=== PATIENT | male | born 1935 | race Caucasian/White ===

== ENCOUNTER → 2018-08-14 | Outpatient (CLI) | payer MEDICARE ==
[~2018-08-14] MED LIST: ASPIRIN EC81 MG PO; CELEBREX100 MG PO; FEXOFENADINE H180 MG PO; LIPITOR10 MG PO; TOPIRAMATE25 MG PO; TREXIMET 85-501 EACH PO; VITAMIN PO
--- NOTE | 2018-08-14 10:33 | Diagnostic Imaging Report ---
PROCEDURE:L-SPINE COMPLETE COMPARISON:None. INDICATIONS:sciatic nerve pain FINDINGS: There are 5 [id number] lumbar-type vertebral bodies. No acute, displaced fracture or subluxation. No pars interarticularis defects are identified on the oblique radiographs. There is multilevel disc space narrowing, marginal osteophytosis, and endplate sclerosis. Wedging of the T12 vertebral body may be physiologic or reflective of a remote minor compression injury. Atherosclerotic vascular calcifications. Sacroiliac joints are comparatively well maintained. CONCLUSION: No acute osseous abnormalities. Multilevel degenerative disc changes and degenerative facet arthropathy. MRI of the lumbar spine without contrast should be considered for further evaluation in the setting of radiculopathy. Dictated by: Kimo Penny M.D. on 08/14/2018 at 10:43 Electronically approved by: Kimo Penny M.D. on 08/14/2018 at 10:43
--- NOTE | 2018-08-14 10:35 | Diagnostic Imaging Report ---
PROCEDURE:HIP LEFT 2-3 VW (+/- PELVIS) COMPARISON:None. INDICATIONS:POLYOSTEOARTHRITIS/RADICULOPATHY FINDINGS: No acute, displaced fracture or dislocation. 3 surgical nails traverse the lateral proximal femoral cortex, intertrochanteric region, femoral neck, and terminate in the inferomedial femoral head. No evidence of hardware failure. No displaced fracture adjacent to the hardware. Mild symmetric narrowing of the hip joint spaces with marginal acetabular osteophytosis. Sacroiliac joints are intact. Sacral foramina appear intact superiorly; inferiorly, the sacral body and coccyx are obscured by rectal gas and stool. Soft tissues are unremarkable. CONCLUSION: postsurgical changes in the proximal left femur as above. 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 Dictated by: Kimo Penny M.D. on 08/14/2018 at 10:45 Electronically approved by: Kimo Penny M.D. on 08/14/2018 at 10:45
--- NOTE | 2018-08-14 10:37 | Diagnostic Imaging Report ---
PROCEDURE:FEMUR 2 VIEWS MINIMUM LEFT COMPARISON:None. INDICATIONS:sciatic leg pain FINDINGS: Surgical hardware within the proximal left femur described on the comparison hip radiograph. Total left knee arthroplasty partially visualized, without periprosthetic displaced fracture. The femoral shaft is intact. Soft tissues are unremarkable with the exception of postoperative dystrophic calcifications in the suprapatellar soft tissues. CONCLUSION: No acute osseous abnormalities. Postoperative changes of the proximal femur and knee as above. Dictated by: Kimo Penny M.D. on 08/14/2018 at 10:47 Electronically approved by: Kimo Penny M.D. on 08/14/2018 at 10:47
== END ==
LOC: RAD 09:34
PROVIDERS: ATTEND Family Medicine
DX: M54.16 Radiculopathy, lumbar region (principal); M16.12 Unilateral primary osteoarthritis, left hip; M46.87 Other specified inflammatory spondylopathies, lumbosacral region
CPT/HCPCS: 72110

== ENCOUNTER → 2025-04-08 | Outpatient (RCR) | payer MEDICARE | LOC: PT 03-09 05:41 | PROVIDERS: ATTEND Family Medicine | DX: H81.319 Aural vertigo, unspecified ear (principal) ==

== ENCOUNTER 2025-04-28 10:00 | Outpatient (RCR) | payer MEDICARE | END 2025-05-09 | LOC: PT 10:00 | PROVIDERS: ATTEND Family Medicine | DX: H81.319 Aural vertigo, unspecified ear (principal); H91.92 Unspecified hearing loss, left ear ==